=== PATIENT | male | born 1945 | race Caucasian/White ===

== ENCOUNTER 2017-11-11 11:08 | Emergency (ER) | payer OTHER ==
[2017-11-11] MEDS ORDERED: NOREPINEPHRINE BITARTRATE 4 MG/4 ML VIAL. IV ONE (11:34)
--- NOTE | 2017-11-11 11:41 | RAD ---
Portable chest, 11/11/2017: HISTORY: CODE BLUE, patient unresponsive An ET tube is in place with its tip located 7 cm above the amarilis. The heart size and pulmonary vascularity are normal. No pulmonary infiltrate is seen. There is no evidence of pleural fluid or pneumothorax. IMPRESSION: 1. The ET tube is in satisfactory position. 2. No acute cardiopulmonary abnormality is detected. Electronically signed by: Joni Trimble MD (11/11/2017 11:38 AM) [facility]
[2017-11-11 11:45] LABS: BASO % 1 % (0-3); EOS % 0 % (0-3); HEMATOCRIT 44.3 % (39.0-53.0); HEMOGLOBIN 13.2 g/dL (13.0-17.5); LYMPH # 3.2 x10^3/uL (1.0-4.8); LYMPH % 34 % (24-48); MEAN CORPUSCULAR HEMOGLOBIN 31 pg (25-35); MEAN CORPUSCULAR HGB CONC 30 g/dL (31-37); MEAN CORPUSCULAR VOLUME 104 fL (79-100); MONO # 0.8 x10^3/uL (0.0-1.1); MONO % 9 % (0-9); NEUT # 5.3 x10^3uL (1.8-7.7); NEUT % 56 % (31-73); PLATELET COUNT 92 x10^3/uL (140-400); RED BLOOD COUNT 4.27 x10^6/uL (4.30-5.70); WHITE BLOOD COUNT 9.4 x10^3/uL (4.0-11.0)
[2017-11-11] MEDS ORDERED: EPINEPHrine 4 MG in IV NORMAL SALINE 250ML 250 ML IV ONE (11:45)
[2017-11-11 11:48] LABS: ALBUMIN 2.3 g/dL (3.4-5.0); ALBUMIN/GLOBULIN RATIO 0.8 (1.0-1.7); CALCIUM 8.6 mg/dL (8.5-10.1); CREATININE 4.4 mg/dL (0.7-1.3); GFR 13.4; POTASSIUM 4.2 mmol/L (3.5-5.1); TOTAL PROTEIN 5.3 g/dL (6.4-8.2)
[2017-11-11 12:08] LABS: % BANDS 16 % (0-9); % LYMPHS 35 % (24-48); % METAS 2 % (0-0); % MONOS 12 % (0-10); % SEGS 32 % (35-66)
[2017-11-11 12:09] LABS: PLT ESTIMATE DECREASED (ADEQUATE)
[2017-11-11 12:12] LABS: BILIRUBIN,URINE NEG (NEG); CLARITY,URINE HAZY; COLOR,URINE AMBER; GLUCOSE,URINE NEG (NEG); NITRITE,URINE NEG (NEG); UROBILINOGEN,URINE 1 mg/dL (0.2 mg/dL)
[2017-11-11 12:13] LABS: AMORPHOUS SEDIMENT,UR PRESENT /HPF; BACTERIA,URINE FEW /HPF (0-FEW); RBC,URINE OCC /HPF (0-2); SQUAMOUS EPITHELIAL CELL,UR OCC /LPF
[2017-11-11 12:14] LABS: BARBITURATES NEG (NEG); BENZODIAZEPINES NEG (NEG); CANNABINOIDS NEG (NEG); COCAINE NEG (NEG); METHADONE NEG (NEG); OPIATES NEG (NEG); PHENCYCLIDINE NEG (NEG)
[2017-11-11 12:15] LABS: AMPHETAMINE/METHAMPHETAMINE NEG (NEG)
[2017-11-11 12:16] LABS: BGAS PH 6.69 (7.35-7.46)
--- NOTE | 2017-11-11 12:16 | PHYS DOC ---
Adult General Chief Complaint Chief Complaint: CPR/FULL ARREST HPI HPI 71-year-old male presents via EMS in a full code. [facility] is a [facility]. He had an episode of vomiting and then went down. Paramedics were called. When the medics arrived they found him to be asystole. They worked on him at the [facility] for about 30 minutes. They were able to get back a pulse. The patient lost pulse for a second time. They gave a total of 4 rounds of epi. Review of Systems Review of Systems Unable to perform due to patient being unconscious . Current Medications Current Medications Current Medications Medications (Trade) Dose Ordered Sig/Natalia Start Time Stop Time Status Last Admin Dose Admin Epinephrine HCl 4 mg/Sodium Chloride 254 ml @ 3.81 mls/hr 1X ONCE 11/11/17 11:45 11/14/17 06:24 Norepinephrine Bitartrate (Levophed) 4 mg STK-MED ONCE 11/11/17 11:34 11/11/17 11:35 DC Allergies Allergies Allergies Coded Allergies Type Severity Reaction Last Updated Verified No Known Drug Allergies 11/11/17 No Physical Exam Physical Exam Limited due to patient being unconscious Constitutional: Well developed, well nourished, nsevere distress.[] HENT: Normocephalic, atraumatic, bilateral external ears normal, oropharynx moist, intubated [] Eyes: Pupils fixed and dilated [] Cardiovascular: PEA [] Lungs & Thorax: Bilateral breath sounds by auscultation, good color change on CO2 detector [] Abdomen: Scarring in the inguinal area on right. soft, no tenderness, no masses , no pulsatile masses. [] Skin: Warm, dry, pale [] Extremities: No cyanosis, no clubbing, no edema. [] Neurologic: unconscious, unresponsive [] [] Current Patient Data Lab Results Laboratory Tests Test 11/11/17 11:18 White Blood Count 9.4 x10^3/uL (4.0-11.0) Red Blood Count 4.27 x10^6/uL (4.30-5.70) L Hemoglobin 13.2 g/dL (13.0-17.5) Hematocrit 44.3 % (39.0-53.0) Mean Corpuscular Volume 104 fL (79-100) H Mean Corpuscular Hemoglobin 31 pg (25-35) Mean Corpuscular Hemoglobin Concent 30 g/dL (31-37) L Red Cell Distribution Width 16.0 % (11.5-14.5) H Platelet Count 92 x10^3/uL (140-400) L Neutrophils (%) (Auto) 56 % (31-73) Lymphocytes (%) (Auto) 34 % (24-48) Monocytes (%) (Auto) 9 % (0-9) Eosinophils (%) (Auto) 0 % (0-3) Basophils (%) (Auto) 1 % (0-3) Neutrophils # (Auto) 5.3 x10^3uL (1.8-7.7) Lymphocytes # (Auto) 3.2 x10^3/uL (1.0-4.8) Monocytes # (Auto) 0.8 x10^3/uL (0.0-1.1) Eosinophils # (Auto) 0.0 x10^3/uL (0.0-0.7) Basophils # (Auto) 0.0 x10^3/uL (0.0-0.2) Segmented Neutrophils % 32 % (35-66) L Band Neutrophils % 16 % (0-9) H Lymphocytes % 35 % (24-48) Monocytes % 12 % (0-10) H Metamyelocytes % 2 % (0-0) H Platelet Estimate Decreased (ADEQUATE) Sodium Level 139 mmol/L (136-145) Potassium Level 4.2 mmol/L (3.5-5.1) Chloride Level 98 mmol/L (98-107) Carbon Dioxide Level 9 mmol/L (21-32) *L Anion Gap 32 (6-14) H Blood Urea Nitrogen 39 mg/dL (8-26) H Creatinine 4.4 mg/dL (0.7-1.3) H Estimated GFR (Cockcroft-Gault) 13.4 BUN/Creatinine Ratio 9 (6-20) Glucose Level 72 mg/dL (70-99) Calcium Level 8.6 mg/dL (8.5-10.1) Total Bilirubin 1.0 mg/dL (0.2-1.0) Aspartate Amino Transferase (AST) 113 U/L (15-37) H Alanine Aminotransferase (ALT) 181 U/L (16-63) H Alkaline Phosphatase 92 U/L (46-116) Troponin I Quantitative 0.278 ng/mL (0-0.055) H Total Protein 5.3 g/dL (6.4-8.2) L Albumin 2.3 g/dL (3.4-5.0) L Albumin/Globulin Ratio 0.8 (1.0-1.7) L EKG EKG NSR, rate 94, RBBB, no ST elevations or depressions[] Radiology/Procedures Radiology/Procedures HISTORY: CODE BLUE, patient unresponsive An ET tube is in place with its tip located 7 cm above the amarilis. The heart size and pulmonary vascularity are normal. No pulmonary infiltrate is seen. There is no evidence of pleural fluid or pneumothorax. IMPRESSION: 1. The ET tube is in satisfactory position. 2. No acute cardiopulmonary abnormality is detected. Electronically signed by: Joni Trimble MD (11/11/2017 11:38 AM) [facility][] Course & Med Decision Making Course & Med Decision Making Pertinent Labs and Imaging studies reviewed. (See chart for details) On arrival to the ED, the patient seemed to be in PEA. He was intubated and had one line in the AC. Please see CODE BLUE flowsheet for more details about the code in the ED. We immediately began compressions and gave epinephrine. After 2 rounds of epinephrine, were able to get a pulse and blood pressure. After a few minutes his heart rate and blood pressure began to decline and we lost his pulse again. After additional ACLS, we were able to regain a pulse and pressure again. We started a dopamine drip followed by an epi drip to maintain heart rate and blood pressure. The patient stabilized somewhat with a heart rate around 100 and blood pressure systolic in the 60s. I discussed the case with the ICU at [facility]. Dr. Meyer accepted the patient for transfer. The patient's heart rate and blood pressure was maintaining, so we transported him via EMS. One hour of critical care time was performed on the patient. This time includes lab analysis, chest x-ray analysis, consultation, and care management. [] Dragon Disclaimer Dragon Disclaimer This electronic medical record was generated, in whole or in part, using a voice recognition dictation system. Departure Departure: Referrals: PCP,BRENNA (PCP) DAVEY MORALES DO November 11, 2017 12:16
[2017-11-11] MEDS ORDERED: EPINEPHrine SYRINGE 1 MG/10 ML SYRINGE ONE (13:00)
[2017-11-11] MEDS ORDERED: NALOXONE 0.4 MG/ML VIAL. ONE (13:00)
[2017-11-11] MEDS ORDERED: DOPamine 400MG/250ML PREMIX 400 MG/250 ML BAG IV ONE (13:00)
[2017-11-11] MEDS ORDERED: SODIUM BICARB ADULT 8.4% 50 MEQ/50 ML DISP.SYRIN. ONE (13:00)
--- NOTE | 2017-11-11 13:48 | EKG ---
[address] [address] Test Date: 2017-11-11 Test Time: 11:27:13 Pat Name: IVÁN BOWDEN Department: Room: Gender: M [employer] Instructor: BALDEMAR : 1945 Requested By: DAVEY MORALES Order Number: [id number] Reading MD: Measurements Intervals [place] Rate: 94 P: 54 FL: 188 QRS: -41 QRSD: 128 T: 62 QT: 370 QTc: 468 Interpretive Statements SINUS RHYTHM LOW LIMB LEAD VOLTAGE RIGHT BUNDLE BRANCH BLOCK ABNORMAL ECG RI6.01 No previous ECG available for comparison
== END 2017-11-11 13:00 | disposition short-term general hospital (02) ==
LOC: EEVIPCON 11:08 → ER 11:08
DX: I46.9 Cardiac arrest, cause unspecified (principal)
CPT/HCPCS: 31500; 36415; 36600; 71045; 80053; 80307; 81001; 82803; 84484; 85007; 85025; 87086; 92950; 93005; 94002; 99291; J0171; J1265; J2310; G0479